=== PATIENT | female | born 1985 | race Caucasian/White ===

== ENCOUNTER → 2016-09-16 16:21 | Outpatient (CLI) | payer MEDICAID ==
[2010-10-09 06:42] VITALS: BMI 23.1
== END | disposition home or self-care (01) ==
LOC: D.MRI 16:21
DX: S83.221A Peripheral tear of medial meniscus, current injury, right knee, initial encounter (principal)

== ENCOUNTER 2016-10-17 06:21 | Day surgery (SDC) | payer MEDICAID ==
[2016-10-16 14:03] LABS: HEMATOCRIT 44.2 % (36.0-48.0); HEMOGLOBIN 15.1 g/dL (12-16); MCH 30.4 pg (26.0-34.0); MCHC 34.2 g/dL (31.0-37.0); MCV 89.1 fL (80.0-100.0); MEAN PLATELET VOLUME 10.1 fL (7.4-10.4); RBC 4.96 10x6/uL (4.00-5.40); RDW 11.9 % (11.5-14.5)
[2016-10-16 14:13] LABS: ANION GAP 14.8 mmol/L (8-16); CALCIUM 8.9 mg/dL (8.5-10.1); CARBON DIOXIDE 26.8 mmol/L (21.0-32.0); POTASSIUM - SERUM 4.6 mmol/L (3.5-5.1)
[~2016-10-17] VITALS: Ht 157.5 cm; Wt 66.7 kg
[~2016-10-17 06:21] MED LIST: BACLOFEN10 MG PO; BUPROPION HCL100 MG PO; HUMALOG 30100 UNITS/ SC; LANTUS INSULIN10 ML SC
[2016-10-17 09:49] VITALS: BP 97/64; Ht 157.5 cm; Wt 66.7 kg
[2016-10-17] MEDS ORDERED: HYDROCODONE-APA1 TAB PO (13:04)
--- NOTE | 2016-10-17 15:56 | NUR ---
IV DC WITH CATHER TIP
--- NOTE | 2016-10-17 16:01 | NUR ---
1400 BS DONE 86
--- NOTE | 2016-10-18 09:25 | OP ---
PATIENT NAME: SHANTEL BOSCH MEDICAL RECORD: [id number] :87 LOCATION:D.OPS ADMISSION DATE: SURGEON: YARELY RUSS MD DATE OF OPERATION: 10/17/2016 PREOPERATIVE DIAGNOSIS: Medial meniscus tear of the right knee. POSTOPERATIVE DIAGNOSIS: Medial meniscus tear of the right knee. PROCEDURE: Right knee arthroscopy with arthroscopic partial medial meniscectomy. SURGEON: Yarely Russ MD. ANESTHESIA: General. INTRAOPERATIVE COMPLICATIONS: None. SUMMARY OF PATHOLOGIC FINDINGS: The patient had a complex tear of the posterior horn of the lateral aspect of the medial meniscus. OPERATIVE SUMMARY IN DETAIL: After obtaining the appropriate preoperative orthopedic surgery consents as well as anesthetic consultation, evaluation and clearance, the patient was brought to the operating room and placed on the operating room table in supine position. After adequate general laryngeal mask airway anesthesia was administered, tourniquet was placed about the proximal aspect of the right lower extremity. Right lower extremity was then prepped and draped in a routine sterile fashion. The leg was elevated, exsanguinated and tourniquet was inflated to 350 mmHg. Routine inferolateral portal was established followed by superomedial portal and inferomedial portal. Diagnostic arthroscopy did reveal the above finding. An arthroscopic meniscal biter as well as a resector was utilized to debride the meniscus back to stable meniscal elements. The lateral compartment was free of any pathology. The patient did have some fibrous tissue in the suprapatellar recess. This was gently debrided. Having completed this, the knee was insufflated with 30 cc of 0.25% Marcaine with epinephrine and 40 mg of Depo-Medrol. Arthroscopy portals were closed in routine interrupted fashion using 4-0 Prolene. Sterile dressings were applied. The patient was awakened and taken to the recovery room in stable condition. All final needle and sponge counts were correct. TRANSINT:[id number] Voice Confirmation ID: [id number] DOCUMENT ID: [id number] YARELY RUSS MD at 0925 CC: [id number] DICTATION DATE: 10/17/16 1308 SEWER PIPE LAYER HELPER: 10/17/16 2110 [place] [facility] [place]16 [place] [address]
== END 2016-10-17 16:29 | disposition home or self-care (01) ==
LOC: D.OPS 06:21 → D.PAN 11:00 → D.OPS 11:00 → D.PAN 11:40 → D.OPS 13:15
PROVIDERS: Anesthesiology
DX: S83.241A Other tear of medial meniscus, current injury, right knee, initial encounter (principal); F17.200 Nicotine dependence, unspecified, uncomplicated; E11.9 Type 2 diabetes mellitus without complications; Z01.812 Encounter for preprocedural laboratory examination

== ENCOUNTER → 2016-12-10 14:03 | Outpatient (CLI) | payer MEDICAID ==
[2016-10-17 09:49] VITALS: BMI 26.9
[~2016-12-10 14:03] MED LIST changes: +HYDROCODONE-APA1 TAB PO
== END | disposition home or self-care (01) ==
LOC: D.MRI 14:03
DX: S83.221A Peripheral tear of medial meniscus, current injury, right knee, initial encounter (principal); X58.XXXA Exposure to other specified factors, initial encounter; Y93.89 Activity, other specified; Y92.029 Unspecified place in mobile home as the place of occurrence of the external cause

== ENCOUNTER 2017-01-06 06:13 | Day surgery (SDC) | payer MEDICAID ==
[2017-01-03 08:58] LABS: HEMATOCRIT 41.5 % (36.0-48.0); HEMOGLOBIN 14.5 g/dL (12-16); MCH 30.6 pg (26.0-34.0); MCHC 34.9 g/dL (31.0-37.0); MCV 87.6 fL (80.0-100.0); RBC 4.74 10x6/uL (4.00-5.40); RDW 11.9 % (11.5-14.5); WBC 7.1 10x3/uL (4.8-10.8)
[2017-01-03 09:10] LABS: CALC OSMOLALITY 280 mosm/kg (275-300); CALCIUM 8.7 mg/dL (8.5-10.1); CARBON DIOXIDE 25.1 mmol/L (21.0-32.0); CHLORIDE - SERUM 101 mmol/L (98-107); CREATININE - SERUM 0.8 mg/dL (0.6-1.3); GLUCOSE 210 mg/dL (74-106); POTASSIUM - SERUM 3.9 mmol/L (3.5-5.1); SODIUM 137 mmol/L (136-145); UREA NITROGEN 16 mg/dL (7-18); eGFR NON AFRICAN AMERICAN 89 mL/min (90-120)
[~2017-01-06] VITALS: Ht 157.5 cm; Wt 67.1 kg
[2017-01-06 09:19] VITALS: BP 110/71; Ht 157.5 cm; Wt 67.1 kg
[2017-01-06] MEDS ORDERED: HYDROCODONE-APA1 TAB PO (12:57)
--- NOTE | 2017-01-06 13:30 | NUR ---
PT RESTING EASILY, TOLERATED FULL LIQ DIET.
--- NOTE | 2017-01-06 14:13 | NUR ---
NORCO 10 ONE PO GIVEN FOR C/O KNEE PAIN 08/03.
--- NOTE | 2017-01-06 14:21 | NUR ---
PT UP TO BR TO VOID.
--- NOTE | 2017-01-06 14:27 | NUR ---
IV D/C'D CATH INTACT.
--- NOTE | 2017-01-06 14:46 | NUR ---
D/C INSTRUCTIONS EXPLAINED TO PT. VOICED UNDERSTANDING. COPIES OF ALL GIVEN, WELL WRITTEN RX FOR NORCO PER DR. RUSS. D/C'D HOME VIA W/C TO PRIVATE CAR.
--- NOTE | 2017-01-10 10:54 | OP ---
PATIENT NAME: SHANTEL BOSCH MEDICAL RECORD: [id number] :87 LOCATION:[facility] ADMISSION DATE: SURGEON: YARELY RUSS MD DATE OF OPERATION: 01/06/2017 PREOPERATIVE DIAGNOSIS: Medial meniscus tear. POSTOPERATIVE DIAGNOSIS: Lateral meniscus tear of the right knee. PROCEDURE: Arthroscopic partial lateral meniscectomy. SURGEON: Yarely Russ MD ANESTHESIA: General. INTRAOPERATIVE COMPLICATIONS: None. SUMMARY OF PATHOLOGIC FINDINGS: The patient had previously had partial thickness tear of the medial meniscus, it was in overall good condition without any looseness; however, on the posterior medial root of the lateral meniscus, the patient had a tear that had emanated in the lateral meniscus that required debriding. OPERATIVE SUMMARY IN DETAIL: After obtaining the appropriate preoperative orthopedic surgery consent as well as anesthetic consultation, evaluation, and clearance, the patient was brought to the operating room and placed on the operating table in supine position. After general laryngeal mask airway was administered, tourniquet was placed about the proximal aspect of the right lower extremity. Right lower extremity was then prepped and draped in routine sterile fashion. Leg was elevated and exsanguinated, tourniquet inflated to 350 mmHg. Routine inferolateral portal was established followed by superomedial portal and inferomedial portal. A thorough evaluation of the medial meniscus showed no real further pathology. She did, however, have the pathology at the posteromedial corner of the lateral meniscus. Serial and sequential debridement of the meniscus was done from the posteromedial root in somewhat of a saucerized fashion and it was taken down to avoid further damage smoothened across the remainder of the lateral meniscus. Having completed this, the knee was insufflated with 30 cc of 0.25% Marcaine with epinephrine and 80 mg of Depo-Medrol. Arthroscopy portals were closed in routine interrupted fashion using 4-0 Prolene. Sterile dressings were applied. The patient was awakened and taken to the room in stable condition. All final needle and sponge counts were correct. TRANSINT:[id number] Voice Confirmation ID: [id number] DOCUMENT ID: [id number] YARELY RUSS MD at 1054 CC: [id number] DICTATION DATE: 01/06/17 1303 FILAMENT COIL WINDER: 01/06/17 1324 DEP [place] 01/06/17 [facility] [address] [place] [address]
== END 2017-01-06 14:48 | disposition home or self-care (01) ==
LOC: D.OPS 06:13 → D.PAN 16:15
PROVIDERS: Anesthesiology
DX: S83.281A Other tear of lateral meniscus, current injury, right knee, initial encounter (principal); M25.561 Pain in right knee; S83.221A Peripheral tear of medial meniscus, current injury, right knee, initial encounter; F17.200 Nicotine dependence, unspecified, uncomplicated; Z01.812 Encounter for preprocedural laboratory examination